=== PATIENT | male | born 1970 ===

== ENCOUNTER 2017-12-18 01:33 | Emergency (ER) | payer SELFPAY ==
--- NOTE | 2017-12-18 01:54 | CPEKG ---
Heart Rate: 79 RR Interval: 759 P-R Interval: 176 QRSD Interval: 92 QT Interval: 364 QTC Interval: 418 P [place]: 53 QRS [place]: 13 T Wave [place]: 9 EKG Severity - OTHERWISE NORMAL ECG - EKG Impression: SINUS ARRHYTHMIA, RATE 56-91 Electronically Signed By: Emma Londono 18-Dec-2017 06:06:15
[2017-12-18 01:55] LABS: PLATELET COUNT 147 10^3/uL (150-400)
--- NOTE | 2017-12-18 01:56 | EDPHY ---
H & P Stated Complaint: chest pain Time Seen by Provider: 12/18/17 01:52 HPI/ROS: HPI The patient presents with chest pain which began about 4 hr prior to presentation which has been a constant pain in his left anterior chest which she describes is pulse bleeding. It is now resolved. The pain started slowly while he was in his hotel room and has continued throughout the night. It is not associated with any shortness of breath, nausea or vomiting, dizziness, diaphoresis. He has no prior history of similar. He does not have any lower extremity edema. He is visiting here from [facility] and took a plane 3 days ago to get here. He had a cardiac treadmill test performed about 3 weeks ago which was negative. His father did have a CABG at age 54. He does smoke 10-12 cigarettes a day. He says he has been dealing with insomnia throughout his trip because of jet black and usually unable to sleep at this hour. REVIEW OF SYSTEMS Constitutional: No fever, no chills. Eyes: No discharge. ENT: No sore throat. Cardiovascular: Positive for chest pain, no palpitations. Respiratory: No cough, no shortness of breath. Gastrointestinal: No abdominal pain, no vomiting. Genitourinary: No hematuria. Musculoskeletal: No back pain. Skin: No rashes. Neurological: No headache. PMHx: Healthy Soc Hx: Visiting from [facility], cigarette smoker FHx: Father with CAD, CABG at age 54 PHYSICAL General Appearance: Alert, no distress Eyes: Pupils equal and round no pallor or injection ENT, Mouth: Mucous membranes moist Respiratory: There are no retractions, lungs are clear to auscultation Cardiovascular: Regular rate and rhythm Gastrointestinal: Abdomen is soft and non-tender, no masses, bowel sounds normal Neurological: A&O, moves all extremities Skin: Warm and dry, no rashes Musculoskeletal: Neck is supple non tender Extremities: symmetrical, full range of motion Psychiatric: Patient is oriented X 3, there is no agitation Source: Patient Exam Limitations: No limitations Constitutional: Initial Vital Signs Temperature (C) 36.7 C 12/18/17 01:51 Heart Rate 81 12/18/17 01:51 Respiratory Rate 18 12/18/17 01:51 Blood Pressure 146/96 H 12/18/17 01:51 O2 Sat (%) 96 12/18/17 01:51 O2 Delivery Mode Room Air Allergies/Adverse Reactions: No Known Allergies Allergy (Unverified 12/18/17 01:53) Home Medications: Medication Instructions Recorded NK [No Known Home Meds] 12/18/17 Medical Decision Making - Diagnostics EKG Interpretation: EKG: Complete interpretation has been separately recorded in the [facility] archive. Summary impression: Sinus arrhythmia is present, no ST segment change Imaging Results: Chest x-ray two view shows no cardiomegaly, no effusion, interpreted by me, radiology interpretation is pending. 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 He does have a family history of CAD and is a cigarette smoker. On arrival here he is slightly hypertensive, otherwise vital signs are normal. Physical exam is unremarkable. Have reviewed his initial EKG in is normal. Differential diagnosis includes ACS, PE, costochondritis, stress, GERD. In the emergency department, patient was placed on the security monitor and had no events. Blood pressure improved with time. He had no recurrence of his chest pain. D-dimer was checked making PE unlikely. Troponin was negative. Chest x-ray was normal. I have calculated his HEART score at 2. This puts him at low risk for ACS. Also with recent negative stress test which is reassuring. He is comfortable going home and will be discharged. - Data Points Laboratory Results: Laboratory Results 12/18/17 01:45 12/18/17 01:45 12/18/17 12/18/17 12/18/17 01:45 01:45 01:45 WBC 8.34 10^3/uL 10^3/uL (3.80-9.50) RBC 5.40 10^6/uL 10^6/uL (4.40-6.38) Hgb 15.8 g/dL g/dL (13.7-17.5) Hct 46.8 % % (40.0-51.0) MCV 86.7 fL fL (81.5-99.8) MCH 29.3 pg pg (27.9-34.1) MCHC 33.8 g/dL g/dL (32.4-36.7) RDW 13.6 % % (11.5-15.2) Plt Count 147 10^3/uL L 10^3/uL (150-400) MPV 11.0 fL fL (8.7-11.7) Neut % (Auto) 46.4 % % (39.3-74.2) Lymph % (Auto) 42.1 % % (15.0-45.0) [place] % (Auto) 7.3 % % (4.5-13.0) Eos % (Auto) 3.4 % % (0.6-7.6) Baso % (Auto) 0.4 % % (0.3-1.7) Nucleat RBC Rel Count 0.0 % % (0.0-0.2) Absolute Neuts (auto) 3.88 10^3/uL 10^3/uL (1.70-6.50) Absolute Lymphs (auto) 3.51 10^3/uL H 10^3/uL (1.00-3.00) Absolute Monos (auto) 0.61 10^3/uL 10^3/uL (0.30-0.80) Absolute Eos (auto) 0.28 10^3/uL 10^3/uL (0.03-0.40) Absolute Basos (auto) 0.03 10^3/uL 10^3/uL (0.02-0.10) Absolute Nucleated RBC 0.00 10^3/uL 10^3/uL (0-0.01) Immature Gran % 0.4 % % (0.0-1.1) Immature Gran # 0.03 10^3/uL 10^3/uL (0.00-0.10) D-Dimer < 0.27 ug/mLFEU ug/mLFEU (0.00-0.50) Sodium 138 mEq/L mEq/L (135-145) Potassium 3.9 mEq/L mEq/L (3.5-5.2) Chloride 101 mEq/L mEq/L (97-110) Carbon Dioxide 25 mEq/l mEq/l (22-31) Anion Gap 12 mEq/L mEq/L (8-16) BUN 16 mg/dL mg/dL (7-23) Creatinine 0.9 mg/dL mg/dL (0.7-1.3) Estimated GFR > 60 Glucose 103 mg/dL H mg/dL (70-100) Calcium 9.7 mg/dL mg/dL (8.5-10.4) Troponin I < 0.012 ng/mL ng/mL (0.000-0.034) Departure - Departure Disposition: Home, Routine, Self-Care Clinical Impression: Chest pain Qualifiers: Chest pain type: unspecified Qualified Code(s): R07.9 - Chest pain, unspecified Condition: Good Instructions: Chest Pain (ED) Additional Instructions: You should return to the emergency department if your worse in any way. Please make sure to drink plenty of fluids and get rest when you can. Your testing today was normal showing no signs of heart attack, blood clot to the lung, pneumonia. Referrals: Patient,NotPresent [Primary Care Provider] - As per Instructions
[2017-12-18 02:13] VITALS: BP 119/76
--- NOTE | 2017-12-18 02:31 | CPEKG ---
Heart Rate: 61 RR Interval: 984 P-R Interval: 168 QRSD Interval: 92 QT Interval: 380 QTC Interval: 383 P [place]: 24 QRS [place]: 5 T Wave [place]: 5 EKG Severity - NORMAL ECG - EKG Impression: SINUS RHYTHM Electronically Signed By: Emma Londono 18-Dec-2017 06:06:08
== END 2017-12-18 02:37 | disposition home or self-care (01) ==
LOC: CED 01:33
DX: R07.9 Chest pain, unspecified (principal); F17.210 Nicotine dependence, cigarettes, uncomplicated
CPT/HCPCS: 71046-PO; 80048-PO; 84484-PO; 85025-PO; 85378-PO